=== PATIENT | female | born 1950 | race Caucasian/White ===

== ENCOUNTER 2017-09-22 12:43 | Outpatient (CLI) | payer OTHER, MEDICAID | END 2017-09-22 18:45 | disposition home or self-care (01) | LOC: SMA 12:43 | PROVIDERS: ATTEND Family Medicine | DX: Z12.31 Encounter for screening mammogram for malignant neoplasm of breast (principal) | CPT/HCPCS: G0202 ==

== ENCOUNTER 2019-01-11 13:04 | Outpatient (CLI) | payer OTHER, MEDICAID | END 2019-01-11 19:55 | disposition home or self-care (01) | LOC: SMA 13:04 | PROVIDERS: ATTEND Family Medicine | DX: Z12.31 Encounter for screening mammogram for malignant neoplasm of breast (principal) | CPT/HCPCS: 77067 ==